=== PATIENT | male | born 1960 | race Caucasian/White ===

== ENCOUNTER 2019-08-13 13:02 | Day surgery (SDC) | payer BC ==
[~2019-08-13] VITALS: Ht 172.7 cm; Wt 91.9 kg
[2019-08-13] MEDS ORDERED: MIDAZOLAM 1 MG/ML, 2ML ONE (14:06)
[2019-08-13] MEDS ORDERED: FENTANYL PF 100 MCG/2ML ONE (14:06)
[2019-08-13] MEDS ORDERED: LACTATED RINGERS 1,000 ML IV SCH (14:09)
[2019-08-13] MEDS ORDERED: DIOVAN PO (14:16)
[2019-08-13] MEDS ORDERED: MULT-717 PO (14:16)
[2019-08-13] MEDS ORDERED: VIT B 12 PO (14:16)
[2019-08-13] MEDS ORDERED: EZET10TA70 PO (14:16)
[2019-08-13] MEDS ORDERED: GARL10002 PO (14:16)
[2019-08-13] MEDS ORDERED: VIT D3 PO (14:16)
[2019-08-13] MEDS ORDERED: FISH OIL PO (14:16)
[2019-08-13] MEDS ORDERED: AMLO-150 PO (14:16)
[2019-08-13] MEDS ORDERED: ASPI-496 PO (14:16)
[2019-08-13 14:23] VITALS: BP 161/91
[2019-08-13] MEDS ORDERED: LIDOCAINE-MPF 1%, 2ML INFIL ONE (14:30)
[2019-08-13] MEDS ORDERED: ONDANSETRON 2MG/ML, 2ML ONE (14:36)
[2019-08-13] MEDS ORDERED: KETAMINE 10 MG/ML, 20ML ONE (14:36)
[2019-08-13] MEDS ORDERED: PROPOFOL 10 MG/ML, 20ML ONE (14:36)
[2019-08-13] MEDS ORDERED: hydrALAzine 20 MG/ML, 1ML IV PRN (15:00)
[2019-08-13] MEDS ORDERED: MEPERIDINE/PF 25MG/ML,1ML IVPush PRN (15:00)
[2019-08-13] MEDS ORDERED: ONDANSETRON 2MG/ML, 2ML IV PRN (15:00)
[2019-08-13] MEDS ORDERED: HYDROmorphone 2 MG/ML, 1ML IVPush PRN (15:00)
[2019-08-13] MEDS ORDERED: LABETALOL 5MG/ML, 20ML IV PRN (15:00)
[2019-08-13] MEDS ORDERED: PROMETHAZINE 25 MG/ML, 1ML IV PRN (15:00)
[2019-08-13] MEDS ORDERED: ACETAMINOPHEN 325 MG TABLET PO PRN (15:00)
[2019-08-13] MEDS ORDERED: FENTANYL PF 100 MCG/2ML IV PRN (15:00)
[2019-08-13] MEDS ORDERED: OXYcodone 5 MG/5 ML ORAL.SOL UDC PO PRN (15:00)
== END 2019-08-13 16:35 | disposition home or self-care (01) ==
LOC: OUT 13:02
PROVIDERS: ATTEND Internal Medicine
DX: R19.5 Other fecal abnormalities (principal); D12.0 Benign neoplasm of cecum; D12.4 Benign neoplasm of descending colon; C20 Malignant neoplasm of rectum; E78.5 Hyperlipidemia, unspecified; I10 Essential (primary) hypertension; Z86.010 Personal history of colon polyps
CPT/HCPCS: 45380; 45392; 88172; 88173; 88305; J2250; J2405; J2704; J3010; J7120

== ENCOUNTER → 2019-08-21 | Outpatient (CLI) | payer BC ==
[~2019-08-21] MED LIST: AMLO-150 PO; ASPI-496 PO; DIOVAN PO; EZET10TA70 PO; FISH OIL PO; GARL10002 PO; MULT-717 PO; VIT B 12 PO; VIT D3 PO
== END | disposition home or self-care (01) ==
LOC: PETCFH 09:53
PROVIDERS: ATTEND Internal Medicine
DX: C20 Malignant neoplasm of rectum (principal); E78.5 Hyperlipidemia, unspecified; I10 Essential (primary) hypertension
CPT/HCPCS: 78815; A9552

== ENCOUNTER → 2019-09-02 | Outpatient (CLI) | payer BC | END | disposition home or self-care (01) | LOC: CFH 08:43 | PROVIDERS: ATTEND Internal Medicine Cardiovascular Disease | DX: E78.5 Hyperlipidemia, unspecified (principal) | CPT/HCPCS: 75571 ==